=== PATIENT | female | born 1940 | race Caucasian/White ===

== ENCOUNTER 2016-11-08 20:34 | Inpatient (IN) | payer MEDICARE, MEDICAID ==
[~2016-11-08] VITALS: Ht 157.5 cm; Wt 670.9 kg
--- NOTE | 2016-11-08 20:45 | NUR ---
PT BIB PA C/O "URINARY RETENTION" PER REPORT AND BURNING/DYSURIA. PT IS UNABLE TO PROVIDE A HISTORY OR DETAILS OF SYMPTOMS. DENIES N/V/D. NO OTHER COMPLAINTS. CALM, COOPERATIVE. IN ER BED 14.
--- NOTE | 2016-11-08 21:01 | NUR ---
PLACED ON BEDPAN AFTER CLEANING WITH DAIANA SOAP WIPES. IF UNABLE TO URINATE, PT CONSENTS TO CATHETER. PT REPORTS SHE URINATED JUST PRIOR TO ARRIVAL. CONTINENT.
[2016-11-08] MEDS ORDERED: RISP0.2515 PO (21:24)
[2016-11-08] MEDS ORDERED: VENL75CA62 PO (21:24)
[2016-11-08] MEDS ORDERED: ALBU2.5V13 NEB (21:24)
[2016-11-08] MEDS ORDERED: NIFE30TA91 PO (21:24)
[2016-11-08] MEDS ORDERED: FLUT1BLS IH (21:24)
[2016-11-08] MEDS ORDERED: BACL10TA PO (21:24)
[2016-11-08] MEDS ORDERED: ACET1TAB25 PO (21:24)
[2016-11-08] MEDS ORDERED: SENN8.6T6 PO (21:24)
[2016-11-08] MEDS ORDERED: TRAZ-147 PO (21:24)
[2016-11-08] MEDS ORDERED: MONT10TA22 PO (21:24)
[2016-11-08] MEDS ORDERED: TIOT18CA3 IH (21:24)
[2016-11-08] MEDS ORDERED: ESOM40CA52 PO (21:24)
[2016-11-08] MEDS ORDERED: ALBU8.5H2 INH (21:24)
[2016-11-08] MEDS ORDERED: BENA40TA2 PO (21:24)
[2016-11-08] MEDS ORDERED: MAG-5 PO (21:24)
[2016-11-08] MEDS ORDERED: DOCU-25 PO (21:24)
[2016-11-08] MEDS ORDERED: ALBU2.5V38 IH (21:24)
[2016-11-08 21:38] LABS: APPEARANCE,URINE Clear (CLEAR); BILIRUBIN,URINE Negative (NEGATIVE); BLOOD, URINE Trace-intact Ery/uL (NEGATIVE); COLOR,URINE Yellow (YELLOW); KETONES,URINE Negative (NEGATIVE); LEUKOCYTE ESTERASE ,URINE Moderate (NEGATIVE); NITRITE, URINE Negative (NEGATIVE); PH,URINE 5.5 (5.0-8.0); PROTEIN,URINE Negative (NEGATIVE); UGLUCOSE Negative (NEGATIVE); UROBILINOGEN,URINE 0.2 EU/dL (0.2)
[2016-11-08 21:46] LABS: BACTERIA,URINE Few /HPF (None Seen); SQUAMOUS EPITHELIAL CELL,UR Moderate /HPF (None Seen)
[2016-11-08 21:47] LABS: RBC,URINE 0-2 /HPF (0-2); WBC,URINE 21-50 /HPF (0-3)
[2016-11-08 21:47] LABS: BASOPHILS # (AUTO) 0.1 /CMM (0.0-0.2); BASOPHILS % (AUTO) 0.6 % (0.0-2.0); EOSINOPHILS # (AUTO) 0.2 /CMM (0.0-0.7); EOSINOPHILS % (AUTO) 2.5 % (0.0-6.0); HEMATOCRIT 36 % (33-45); HEMOGLOBIN 11.9 g/dL (11.5-14.8); LYMPHOCYTES # (AUTO) 1.2 /CMM (0.8-4.8); LYMPHOCYTES % (AUTO) 12.8 % (20.0-44.0); MEAN CORPUSCULAR HEMOGLOBIN 26 PG (26.0-33.0); MEAN CORPUSCULAR HGB CONC 33 g/dl (31.0-36.0); MEAN CORPUSCULAR VOLUME 79 fL (82-100); MONOCYTES % (AUTO) 10.5 % (2.0-12.0); NEUTROPHILS # (AUTO) 6.7 /CMM (1.8-8.9); NEUTROPHILS % (AUTO) 73.6 % (43.0-81.0); PLATELET COUNT (AUTO) 417 /CMM (150-450); RDW COEFFICIENT OF VARIATION 13.4 (11.5-15.0); RED BLOOD CELL COUNT(AUTO) 4.54 MIL/uL (4.0-5.2); WHITE BLOOD COUNT (AUTO) 9.2 K/uL (4.3-11.0)
[2016-11-08 21:54] LABS: CALCIUM, SERUM 10.2 mg/dL (8.5-10.1); CREATININE 1.6 mg/dL (0.6-1.3); POTASSIUM 5.1 mmol/L (3.5-5.1)
[2016-11-08] MEDS ORDERED: IV NS 0.9% 500 ML BAG IV ONE (22:00)
[2016-11-08] MEDS ORDERED: IV NS 0.9% 1,000 ML BAG IV ONE (22:00)
[2016-11-08] MEDS ORDERED: IV SET PRIMARY 1 EA INFUS.SET MC ONE (22:14)
[2016-11-08] MEDS ORDERED: IV NS 0.9% 1,000 ML ONE (22:14)
[2016-11-08] MEDS ORDERED: IV NS 0.9% 500 ML IV ONE (22:14)
--- NOTE | 2016-11-08 22:15 | NUR ---
REPORT GIVEN TO BALDO BURROWS FOR ADMISSION
[2016-11-08 22:35] VITALS: BP 141/68
--- NOTE | 2016-11-08 23:20 | NUR ---
RN NOTES RECEIVED PX FROM ER VIA [place], AWAKE, ALERT, ORIENTED X 2, COOPERATIVE; PX SAYS SHE IS FORGETFUL SARTHAK WHEN ASKED OF HER MEDICAL HISTORY; CHANGED TO HOSPITAL GOWN; REPOSITIONED FOR COMFORT WITH HOB AT 30 ANGLE; ON OXYGEN FROM ER, O2 SAT UPON ARRIVAL IS 96%, ADJUSTED O2 TO 1 LPM; PX DENIED PAIN, SOB, N/V, DIZZINESS; PHYSICAL ASSESSMENT DONE; RESP EVEN AND UNLABORED, NOT IN DISTRESS; NO SKIN BREAKDOWN; PIV LEFT FA G20 PATENT AND INTACT; ROSADO CATH CONNECTED TO BAG BY GRAVITY; ORIENTED PX TO THE UNIT AND TO TIME.
[2016-11-08] MEDS ORDERED: MAG HYDROX/AL HYDROX/SIMETH 30 ML UDC PO PRN (23:30)
[2016-11-08] MEDS ORDERED: ACETAMINOPHEN W/ CODEINE#3 1 EA TABLET PO PRN (23:30)
[2016-11-08] MEDS ORDERED: SENNOSIDES 8.6 MG TABLET PO PRN (23:30)
[2016-11-08] MEDS ORDERED: IV SET PRIMARY PUMP SET 1 EA INFUS.SET MC ONE (23:35)
[2016-11-08] MEDS ORDERED: SECONDARY IV SET 1 EA INFUS.SET MC ONE (23:35)
[2016-11-09] VITALS: BP 141/68
[2016-11-09] MEDS ORDERED: CEFTRIAXONE 1 G VIAL IV SCH
--- NOTE | 2016-11-09 | NUR ---
RN NOTES ABLE TO SPEAK WITH TANI SANCHEZ, SAYS SHE IS AWARE OF PATIENT CONDITION, NEW ORDERS MADE AND CARRIED OUT. PX ABLE TO TOLERATED SIPS OF WATER AND BITES OF SANDWICH. DUE MEDS GIVEN.
[2016-11-09] MEDS ORDERED: IV D5W 50 ML IV ONE (00:05)
[2016-11-09] MEDS ORDERED: ALBUTEROL FS 2.5 MG/0.5 ML VIAL.NEB ONE (00:07)
[2016-11-09] MEDS ORDERED: IV SET PRIMARY PUMP SET 1 EA INFUS.SET MC ONE (00:13)
[2016-11-09] MEDS: IV NS 0.9% 1,000 ML IV PRN ×2 (00:19→22:21)
--- NOTE | 2016-11-09 01:00 | NUR ---
RN NOTES REMINDED RT OF BREATHING TX, ALBUTEROL.
[2016-11-09] MEDS: ALBUTEROL FS 2.5 MG/0.5 ML VIAL.NEB NEB SCH ×4 (01:30→17:49)
--- NOTE | 2016-11-09 06:10 | NUR ---
RN NOTES PATIENT RESTING COMFORTABLY IN BED, NO SOB, NO DISTRESS, NOT IN APPARENT PAIN; PATIENT IS COOPERATIVE AND CALM. NEEDS ATTENDED. CALL LIGHT WITHIN REACH. PIV REMAINED PATENT AND INTACT; SKIN INTACT; ROSADO INTACT AND CONNECTED TO BAG BY GRAVITY; O2 SAT AT 92-93%. WILL ENDORSE TO NEXT RN.
[2016-11-09] MEDS ORDERED: MAG30ORA PO (07:26)
[2016-11-09 08:00] VITALS: BP 126/53
--- NOTE | 2016-11-09 08:00 | NUR ---
MS RN NOTES PATIENT IN BED RESTING NO SOB OR ACUTE DISTRESS NOTED. PERIPHERAL IV ON LEFT FOREARM INTACT PATENT RUNNING PRESCRIBED FLUIDS. BED IN LOW LOCKED POSITION. CALL LIGHT WITHIN REACH WILL CONTINUE TO MONITOR.
[2016-11-09] MEDS: BENAZEPRIL HCL 20 MG TABLET PO SCH ×2 (09:00→16:44)
[2016-11-09] MEDS ORDERED: TIOTROPIUM BROMIDE 6 CAP/BOX CAP.W.DEV IH SCH (09:00)
[2016-11-09] MEDS ORDERED: VENLAFAXINE 37.5 MG TABLET PO SCH (09:00)
[2016-11-09] MEDS: NIFEdipine XL (30MG) 30 MG TAB PO SCH ×2 (10:06→16:44)
[2016-11-09] MEDS: DOCUSATE SODIUM 100 MG CAPSULE PO SCH ×2 (10:06→16:44)
[2016-11-09] MEDS: BACLOFEN (10 MG) 10 MG TABLET PO SCH ×3 (10:06→16:44)
[2016-11-09] MEDS: IPRATROPIUM NEB FS 0.5 MG/2.5 ML AMPUL.NEB NEB SCH ×2 (10:21→17:49)
--- NOTE | 2016-11-09 13:00 | NUR ---
MS RN NOTES PATIENT SEEN AND EVALUATED BY DR. TOLENTINO ORDERS NOTED AND CARRIED OUT.
[2016-11-09 16:00] VITALS: BP 141/75
[2016-11-09] MEDS ORDERED: DEXTROSE 50%-WATER 50 ML DISP.SYRIN IV PRN (18:00)
--- NOTE | 2016-11-09 18:00 | NUR ---
MS RN NOTES PATIENT NOTED TO HAVE WHEEZING AND SOB WITH O2 SATURATION AT 93% CALLED RT PRESENT AT BEDSIDE, ADMINISTERED BREATHING TREATMENT, DR. TOLENTINO MAD AWARE NEW ORDERS TO ADD PRN BREATHING TREATMENT EVERY 3 HOURS NEEDED.
--- NOTE | 2016-11-09 18:26 | NUR ---
MS RN NOTES PATIENT NOTED WITH NO SOB OR ACUTE DISTRESS AFTER BREATHING TREATMENT. ALL DUE MEDICATIONS GIVEN. IV INTACT PATENT ON RIGHT AC. ALL NEEDS MET WILL ENDORSE TO PM SHIFT AUBREY.
--- NOTE | 2016-11-09 19:30 | NUR ---
MS/RN OPENING NOTES PT AWAKE, SITTING UP IN BED EATING DINNER. WITH O2 AT 2LPM VIA NC, NO SOB OR DISTRESS NOTED BUT WITH NON-PRODUCTIVE COUGH. NO WHEEZING NOTED AT THIS TIME. IV TO RAC PATENT AND INTACT, NO S/S OF INFILTRATION NOTED. PT IS CALM AND COOPERATIVE. DENIES PAIN. BED IN LOW/LOCKED POSITION WITH CALL LIGHT IN REACH. BED RAILS UPX3 WITH ALARM ON. WILL CONTINUE TO MONITOR.
[2016-11-09 20:00] VITALS: BP 141/66
--- NOTE | 2016-11-09 22:02 | NUR ---
MS/RN NOTES PT ASSISTED TO THE RESTROOM. PT VOIDED IN TOILET CLEAR YELLOW URINE
[2016-11-09] MEDS: BLOOD SUGAR DIAGNOSTIC 1 EACH STRIP IN SCH (22:22)
[2016-11-09] MEDS: risperiDONE 0.25 MG TABLET PO SCH (22:22)
[2016-11-09] MEDS: MONTELUKAST SODIUM (10MG) 10 MG TABLET PO SCH (22:22)
[2016-11-09] MEDS: ATORVASTATIN 10 MG TABLET PO SCH (22:22)
[2016-11-09] MEDS: TRAZODONE 50 MG TABLET PO SCH (22:22)
[2016-11-09] MEDS: INSULIN ASPART NOVOLOG 100 UNIT/ML CARTRIDGE SQ PRN (22:30)
[2016-11-09] MEDS ORDERED: SECONDARY IV SET 1 EA INFUS.SET MC ONE (23:28)
[2016-11-09] MEDS: CEFTRIAXONE 1 G in IV D5W 50 ML IV SCH (23:32)
--- NOTE | 2016-11-10 01:20 | NUR ---
MS/RN NOTES RECHECKED BLOOD [id number]. NO ACTION NEEDED. SNACKS PROVIDED AT BEDSIDE AND ENCOURAGE PT INTAKE. WILL CONTINUE TO MONITOR FOR POSSIBLE S/S OF HYPOGLYCEMIA
--- NOTE | 2016-11-10 05:45 | NUR ---
MS/RN NOTES CALLED RT TWICE TO REQUEST FOR PRN BREATHING TX. NO ANSWER. WILL TRY AGAIN SHORTLY
--- NOTE | 2016-11-10 06:18 | NUR ---
MS/RN NOTES SPOKE TO RT YESY AT 0600 AND ASKED IF HE COULD COME DOWN FOR PRN BREATHING TX. HE ASKED IF SHE WAS WHEEZING AND I SAID IT HAS CALMED DOWN BUT PT FEELS LIKE SHE COULD USE A BREATHING TX. RT YESY SAID HE WOULD COME DOWN AND ASSESS PT. F/U WITH RT AT 0618 AND ASKED IF HE COULD GIVE THE BREATHING TX BEFORE CHANGE OF SHIFT. HE SAID YES.
[2016-11-10] MEDS: ALBUTEROL FS 2.5 MG/3 ML VIAL.NEB NEB PRN ×3 (06:23→16:46)
[2016-11-10] MEDS: IPRATROPIUM NEB FS 0.5 MG/2.5 ML AMPUL.NEB NEB PRN ×3 (06:24→16:46)
[2016-11-10 06:29] LABS: BASOPHILS % (AUTO) 0.3 % (0.0-2.0); EOSINOPHILS # (AUTO) 0.2 /CMM (0.0-0.7); EOSINOPHILS % (AUTO) 1.7 % (0.0-6.0); HEMATOCRIT 33 % (33-45); HEMOGLOBIN 10.8 g/dL (11.5-14.8); LYMPHOCYTES # (AUTO) 1.9 /CMM (0.8-4.8); LYMPHOCYTES % (AUTO) 17.1 % (20.0-44.0); MEAN CORPUSCULAR HEMOGLOBIN 28 PG (26.0-33.0); MEAN CORPUSCULAR HGB CONC 33 g/dl (31.0-36.0); MEAN CORPUSCULAR VOLUME 84 fL (82-100); MONOCYTES # (AUTO) 1.2 /CMM (0.1-1.30); NEUTROPHILS # (AUTO) 7.9 /CMM (1.8-8.9); NEUTROPHILS % (AUTO) 69.9 % (43.0-81.0); PLATELET COUNT (AUTO) 405 /CMM (150-450); RDW COEFFICIENT OF VARIATION 14.9 (11.5-15.0); RED BLOOD CELL COUNT(AUTO) 3.89 MIL/uL (4.0-5.2); WHITE BLOOD COUNT (AUTO) 11.2 K/uL (4.3-11.0)
[2016-11-10] MEDS: BLOOD SUGAR DIAGNOSTIC 1 EACH STRIP IN SCH ×4 (06:46→21:39)
[2016-11-10 07:06] LABS: CALCIUM, SERUM 10.2 mg/dL (8.5-10.1); CREATININE 1.3 mg/dL (0.6-1.3); POTASSIUM 5.1 mmol/L (3.5-5.1)
--- NOTE | 2016-11-10 07:14 | NUR ---
MS/RN CLOSING NOTES PT ASLEEP, EASILY AROUSABLE TO NAME. A/OX1-2, FORGETFUL. ON 2LPM O2 VIA NC, BREATHING EVEN AND UNLABORED. NO SOB OR DISTRESS NOTED. RECEIVED PRN BREATHING TX AROUND 0620. NO WHEEZING NOTED. IV TO RAC PATENT AND INTACT, RUNNING IVF ORDERED. PT VOIDED X2 DURING SHIFT. DENIES DIFFICULT OR PAINFUL URINATION. BLOOD SUGAR AROUND 0645 WAS 130, NO INSULIN COVERAGE PER SLIDING SCALE. BED REMAINS IN LOW/LOCKED POSITION WITH CALL LIGHT IN REACH. BED ALARM ON AND BED RAILS UP FOR SAFETY. ENDORSED TO AM SHIFT AUBREY.
[2016-11-10 08:00] VITALS: BP 119/60
--- NOTE | 2016-11-10 08:00 | NUR ---
MS RN NOTES PATIENT IN BED RESTING NO SOB OR ACUTE DISTRESS NOTED. IV INTACT ON RIGHT AC RUNNING PRESCRIBED FLUIDS. BED IN LOW LOCKED POSITION. CALL LIGHT WITHIN REACH WILL CONTINUE TO MONITOR.
[2016-11-10] MEDS: methylPREDNISolone SOD SUCC 40 MG/ML VIAL IV SCH ×3 (08:26→17:14)
[2016-11-10] MEDS: DOCUSATE SODIUM 100 MG CAPSULE PO SCH ×2 (08:27→17:16)
[2016-11-10] MEDS: NIFEdipine XL (30MG) 30 MG TAB PO SCH ×2 (08:27→17:18)
[2016-11-10] MEDS: ASPIRIN EC 81 MG TABLET.DR PO SCH (08:27)
[2016-11-10] MEDS: VENLAFAXINE XR 37.5 MG CAP.SR.24H PO SCH (08:27)
[2016-11-10] MEDS: BACLOFEN (10 MG) 10 MG TABLET PO SCH ×3 (08:27→17:16)
[2016-11-10] MEDS: BENAZEPRIL HCL 20 MG TABLET PO SCH ×2 (08:28→17:17)
--- NOTE | 2016-11-10 12:00 | NUR ---
MS RN NOTES PATIENT SEEN AND EVALUATED BY DR. TOLENTINO ORDERS NOTED AND CARRIED OUT.
[2016-11-10] MEDS: INSULIN ASPART NOVOLOG 100 UNIT/ML CARTRIDGE SQ PRN ×3 (12:25→22:11)
[2016-11-10] MEDS ORDERED: HALOPERIDOL LACTATE INJ 5 MG/ML VIAL IM PRN (14:00)
[2016-11-10] MEDS ORDERED: HALOPERIDOL 1 MG TABLET PO PRN (14:00)
[2016-11-10 16:00] VITALS: BP 117/61
--- NOTE | 2016-11-10 18:12 | NUR ---
MS RN NOTES PATIENT IN BED RESTING NO SOB OR ACUTE DISTRESS NOTED. ALL DUE MEDICATIONS GIVEN ALL NEEDS MET. IV ON RIGHT AC INTACT PATENT. WILL ENDORSE TO PM SHIFT AUBREY.
[2016-11-10 20:00] VITALS: BP 131/50
[2016-11-10] MEDS: MONTELUKAST SODIUM (10MG) 10 MG TABLET PO SCH (21:39)
[2016-11-10] MEDS: ATORVASTATIN 10 MG TABLET PO SCH (21:39)
[2016-11-10] MEDS: risperiDONE 0.25 MG TABLET PO SCH (21:39)
[2016-11-10] MEDS: TRAZODONE 50 MG TABLET PO SCH (21:40)
--- NOTE | 2016-11-10 22:15 | NUR ---
MS/RN NOTES BLOOD SUGAR 164, 3 UNITS OF INSULIN ADMINISTERED PER SLIDING SCALE. WILL MONITOR FOR S/S OF HYPOGLYCEMIA Addendum: 11/10/16 at 2234 by LIANE HENDERSON RN MARKOS COBOS TRIED TO CO-SIGN INSULIN BUT ERROR MESSAGE APPEARED SAYING THAT SHE DOES NOT HAVE PROPER ACCESS. MARKOS CONNER FROM 3W TRIED WELL AND GOT THE SAME ERROR MESSAGE. MARKOS MATT WAS NEARBY AND WAS ABLE TO COSIGN FOR ME.
[2016-11-10] MEDS: CEFTRIAXONE 1 G in IV D5W 50 ML IV SCH (23:53)
[2016-11-11] MEDS: BLOOD SUGAR DIAGNOSTIC 1 EACH STRIP IN SCH ×4 (06:39→21:27)
[2016-11-11] MEDS: INSULIN ASPART NOVOLOG 100 UNIT/ML CARTRIDGE SQ PRN (06:44)
--- NOTE | 2016-11-11 06:44 | NUR ---
MS/RN NOTES BLOOD SUGAR= 130, NO INSULIN PER SLIDING SCALE.
[2016-11-11] MEDS: ALBUTEROL FS 2.5 MG/3 ML VIAL.NEB NEB PRN ×3 (07:02→19:58)
[2016-11-11] MEDS: IPRATROPIUM NEB FS 0.5 MG/2.5 ML AMPUL.NEB NEB PRN ×3 (07:02→19:58)
--- NOTE | 2016-11-11 07:15 | NUR ---
MS/RN CLOSING NOTES PT AWAKE, A/OX1-2, FORGETFUL. CURRENTLY RECEIVING BREATHING TX BECAUSE SHE WAS FEELING SHORT OF BREATH AND STARTED WHEEZING. O2 SAT >90%. DENIES PAIN. IV TO RAC PATENT AND INTACT. IVF ON HOLD DUE TO PT BENDING HER ARM THROUGHOUT THE NIGHT. PT VOIDED X2, DENIES DIFFICULTY URINATING/ BURNING SENSATION. BED IN LOW/LOCKED POSITION WITH CALL LIGHT IN REACH. BED RAILS UPX3 WITH ALARM ON. ENDORSED TO AM SHIFT AUBREY.
--- NOTE | 2016-11-11 07:45 | NUR ---
MS/RN OPENING NOTES RECEIVED PATIENT RESTING IN BED COMFORTABLY, A/OX1-2. RESPIRATIONS EVEN AND UNLABORED, ON 02 2L VIA NC, SAT OF 95%NO ACUTE DISTRESS OR DISCOMFORT NOTED, DENIES PAIN AT THIS TIME. SAFETY MEASURES RENDERED, CALL LIGHT PLACED WITHIN REACH. BED LOCKED IN LOWEST, BED RAILS UPX3 WITH ALARM ON. WILL CONTINUE TO MONITOR.
[2016-11-11 08:00] VITALS: BP 145/64
[2016-11-11 08:21] VITALS: BP 145/64
[2016-11-11] MEDS: methylPREDNISolone SOD SUCC 40 MG/ML VIAL IV SCH ×3 (08:52→16:59)
[2016-11-11] MEDS: NIFEdipine XL (30MG) 30 MG TAB PO SCH ×2 (08:52→17:00)
[2016-11-11] MEDS: DOCUSATE SODIUM 100 MG CAPSULE PO SCH ×2 (08:53→17:00)
[2016-11-11] MEDS: BENAZEPRIL HCL 20 MG TABLET PO SCH ×2 (08:53→16:59)
[2016-11-11] MEDS: BACLOFEN (10 MG) 10 MG TABLET PO SCH ×3 (08:53→17:06)
[2016-11-11] MEDS: ASPIRIN EC 81 MG TABLET.DR PO SCH (08:53)
[2016-11-11] MEDS: VENLAFAXINE XR 37.5 MG CAP.SR.24H PO SCH (08:53)
--- NOTE | 2016-11-11 11:49 | NUR ---
MS/RN NOTES BLOOD SUGAR FOR 1200 70MG/DL NO INSULIN PER SLIDING SCALE. ORANGE JUICE GIVEN TO PATIENT. WILL MONITOR FOR S/S OF HYPO/HYPERGLYCEMIA.
[2016-11-11 16:00] VITALS: BP 183/66
--- NOTE | 2016-11-11 17:36 | NUR ---
MS/RN NOTES PATIENTS BLOOD SUGAR 142MG/DL, REFUSES INSULIN, STATING TO NOT BE DIABETIC AND DOES NOT WANT TO TAKE ANY ANTIDIABETICS AT THIS TIME.
--- NOTE | 2016-11-11 18:33 | NUR ---
MS/RN NOTES PATIENT RESTING IN BED COMFORTABLY, NO SIGNIFICANT CHANGES NOTED, STABLE AT THIS TIME. NO S/S OF DISTRESS/DISCOMFORT NOTED. RESPIRATIONS EVEN AND UNLOBED, ON CONTINUOUS 02 VIA NC, BREATHING TX PRN. NO COMPLAINTS OF PAIN AT THIS TIME. PATIENT KEPT CLEAN AND DRY, ALL DUE MEDS GIVEN, ALL NEEDS MET AND ATTENDED. WILL ENDORSE CARE TO SWEET PICKLED FRUIT MAKER FOR AUBREY.
[2016-11-11 20:00] VITALS: BP_SYST 158; BP_SYST 178; BP_DIAS 60; BP_DIAS 69
--- NOTE | 2016-11-11 20:00 | NUR ---
RN NOTES RECEIVED PX AWAKE, AGITATED, SEEN GETTING UP IN BED, PULLING PIV OUT, ORIENTED TO NAME AND PLACE, SEEN TALKING TO HERSELF, SAID "IM LOOKING FOR MY DAUGHTER TED"; NOTED WHEEZING WITH RR AT 26 O2 SAT AT 93%, CALLED LEAD RT TO NOTIFY ASSIGNED RT FOR BREATHING TREATMENT; HALDOL GIVEN FOR AGITATION; NEW PIV PLACED ON RIGHT FOREARM G20 PATENT AND INTACT; PX ABLE TO MOVE BY SELF IN BED; DENIED PAIN, N/V; DISCUSSED PLAN OF CARE; CLOSE TO NURSES STATION TO WATCH OUT FOR FALL, BED ALARM ON.
[2016-11-11 20:40] VITALS: BP 156/60
--- NOTE | 2016-11-11 20:40 | NUR ---
RN NOTES PX STOPPED WHEEZING, O2 SAT AT 94, LATEST VITALS: BP-158/60, HR- 96, RR-21; PX MORE COOPERATIVE BUT EASILY FORGETFUL OF WHY SHE IS IN THE HOSPITAL. CALLED DR. TOLENTINO'S OFFICE, LEFT A MESSAGE OVER TANI SANCHEZ'S VOICEMAILBOX STATING PATIENT'S EARLIER STATUS OF WHEEZING, AGITATION, BP OF 178/69, HR 114 AND OF LATEST VITAL SIGNS.
[2016-11-11] MEDS: TRAZODONE 50 MG TABLET PO SCH (21:26)
[2016-11-11] MEDS: MONTELUKAST SODIUM (10MG) 10 MG TABLET PO SCH (21:26)
[2016-11-11] MEDS: ATORVASTATIN 10 MG TABLET PO SCH (21:26)
[2016-11-11] MEDS: risperiDONE 0.25 MG TABLET PO SCH (21:26)
--- NOTE | 2016-11-11 22:00 | NUR ---
RN NOTES PX NOW CALM, ORIENTED X 2, DUE MEDS GIVEN; BLOOD SUGAR CHECK DONE BUT PX REFUSED INSULIN SQ TREATMENT, EDUCATED ON ITS NEED.
[2016-11-11] MEDS: CEFTRIAXONE 1 G in IV D5W 50 ML IV SCH (23:16)
--- NOTE | 2016-11-12 02:12 | NUR ---
RN NOTES PX SLEEPING, RESP EVEN AND UNLABORED; NO S/SX OF DISTRESS. CONTINUED TO MONITOR. CALL LIGHT WITHIN REACH.
[2016-11-12 03:43] VITALS: BP 133/70
[2016-11-12] MEDS: IPRATROPIUM NEB FS 0.5 MG/2.5 ML AMPUL.NEB NEB PRN ×3 (04:00→11:25)
[2016-11-12] MEDS: ALBUTEROL FS 2.5 MG/3 ML VIAL.NEB NEB PRN ×3 (04:00→11:25)
--- NOTE | 2016-11-12 04:00 | NUR ---
RN NOTES HAD ANOTHER EPISODE OF WHEEZING, O2 SAT 95%, CONTINUED ON O2 AT 2 LPM, BREATHING TREATMENT WAS GIVEN BY RT.
[2016-11-12 06:52] LABS: CALCIUM, SERUM 10.5 mg/dL (8.5-10.1); CREATININE 1.1 mg/dL (0.6-1.3); POTASSIUM 5.5 mmol/L (3.5-5.1)
--- NOTE | 2016-11-12 07:15 | NUR ---
MS RN OPENING RECEIVED PATIENT SLEEPING AWAKE TO NAME. PATIENT DENIES SOB DIFFICULTY BREATHING AND HAS A DRY COUGH NO PRODUCTION. PATIENT IS ON NC 2LPM WILL CHECK ROOM AIR. PATIENT STATES NO NEEDS AT THIS TIME AND APPEARS STABLE. CALL LIGHT IN REACH, BED LOWERED AND LOCKED, RAILS UPX3 FOR SAFETY AND WILL ROUND Q2H OR LESS PER NEEDS
[2016-11-12 07:18] LABS: HEMATOCRIT 30 % (33-45); HEMOGLOBIN 9.8 g/dL (11.5-14.8); LYMPHOCYTES # (AUTO) 0.7 /CMM (0.8-4.8); MEAN CORPUSCULAR HEMOGLOBIN 26 PG (26.0-33.0); MEAN CORPUSCULAR HGB CONC 32 g/dl (31.0-36.0); MEAN CORPUSCULAR VOLUME 79 fL (82-100); MONOCYTES % (AUTO) 6.8 % (2.0-12.0); NEUTROPHILS # (AUTO) 12.8 /CMM (1.8-8.9); NEUTROPHILS % (AUTO) 88.2 % (43.0-81.0); PLATELET COUNT (AUTO) 354 /CMM (150-450); RDW COEFFICIENT OF VARIATION 14.8 (11.5-15.0); RED BLOOD CELL COUNT(AUTO) 3.82 MIL/uL (4.0-5.2); WHITE BLOOD COUNT (AUTO) 14.5 K/uL (4.3-11.0)
[2016-11-12] MEDS: BLOOD SUGAR DIAGNOSTIC 1 EACH STRIP IN SCH ×2 (07:30→12:11)
[2016-11-12 08:00] VITALS: BP 123/55
[2016-11-12] MEDS: methylPREDNISolone SOD SUCC 40 MG/ML VIAL IV SCH ×2 (08:23→12:12)
[2016-11-12] MEDS: BACLOFEN (10 MG) 10 MG TABLET PO SCH ×2 (08:24→12:13)
[2016-11-12] MEDS: DOCUSATE SODIUM 100 MG CAPSULE PO SCH (08:24)
[2016-11-12] MEDS: ASPIRIN EC 81 MG TABLET.DR PO SCH (08:24)
--- NOTE | 2016-11-12 08:30 | NUR ---
MS RN NOTES "NON ADMIN" FOR 629 ACCUCHECK DUE TO NIGHT RN ALREADY COMPLETING THIS; IT WAS JUST NOT SCANNED
--- NOTE | 2016-11-12 08:57 | NUR ---
MS RN NOTES MESSAGE LEFT TO DR TOLENTINO TO NOTIFY OF LABS; K, WBC, AND BUN INCREASE.
[2016-11-12] MEDS: VENLAFAXINE XR 37.5 MG CAP.SR.24H PO SCH (09:27)
[2016-11-12 09:28] VITALS: BP 128/60
[2016-11-12] MEDS: NIFEdipine XL (30MG) 30 MG TAB PO SCH (09:28)
--- NOTE | 2016-11-12 10:00 | NUR ---
MS RN NOTES MED RECON COMPLETED PER MD ORDERS. PRINTED. PER MD CALL HIS OFFICE TO NOTIFY TO WRITE RX FOR PREDNISONE 40MG DAILY FOR [address]. [address] JEAN PER DAUGHTER REQUEST AND NOTIFIED OF MD PLAN TO DC. PER DAUGHTER CALL HER ONCE PATIENT IS READY FOR INTENSIVE CARE UNIT NURSE
--- NOTE | 2016-11-12 10:03 | NUR ---
MS RN NOTES PER DR TOLENTINO CHANGE LOTENSIN ORDER TO 20MG BID PO AND ORDER FOR DISCHARGE PREDNISONE 49MG PO DAILY FOR 3 DAYS. MD AWARE OF THE LABS; NO NEW ORDERS
--- NOTE | 2016-11-12 11:21 | NUR ---
MS RN NOTES CALLED RESPIRATORY FOR PRN BREATHING TREATMENT FOR PATIENT
--- NOTE | 2016-11-12 14:34 | NUR ---
MS PREPARED FOODS SERVICE TEAM MEMBER PT STABLE NO COMPLICATIONS NO CHANGES. PATIENT AND DAUGHTER EDUCATED ON DISCHARGE MATERIAL AND STATED UNDERSTANDING. MEDICATION RECON AND MD ORDERS GIVEN WITH MATERIAL FROM [facility]. PATIENT DAUGHTER SIGNED DC MATERIAL PER PATIENT REQUEST AND GIVEN COPIES. IV REMOVED PRESSURE AND DRESSING APPLIED NO BLEEDING. PATIENT ASSISTED TO CAR IN WHEELCHAIR BY PAPITO CERVANTES. PATIENT LEFT IN STABLE CONDITION NO COMPLICATIONS
[2016-11-12] MEDS ORDERED: BENAZEPRIL HCL 20 MG TABLET PO SCH (17:00)
[2016-11-14] MEDS ORDERED: BENAZEPRIL HCL 20 MG TABLET PO SCH (09:00)
== END 2016-11-12 14:45 | DRG 190 ==
LOC: ER 20:38 → MEDSG2 22:08
PROVIDERS: ADMIT Internal Medicine; ATTEND Internal Medicine
DX: J44.0 Chronic obstructive pulmonary disease with (acute) lower respiratory infection (principal); G93.40 Encephalopathy, unspecified; N17.0 Acute kidney failure with tubular necrosis; E87.1 Hypo-osmolality and hyponatremia; J20.9 Acute bronchitis, unspecified; J44.1 Chronic obstructive pulmonary disease with (acute) exacerbation; I25.10 Atherosclerotic heart disease of native coronary artery without angina pectoris; G30.9 Alzheimer's disease, unspecified; F02.80 Dementia in other diseases classified elsewhere, unspecified severity, without behavioral disturbance, psychotic disturbance, mood disturbance, and anxiety; D63.8 Anemia in other chronic diseases classified elsewhere; F17.200 Nicotine dependence, unspecified, uncomplicated; K21.9 Gastro-esophageal reflux disease without esophagitis; E87.5 Hyperkalemia; R82.71 Bacteriuria; T38.0X5A Adverse effect of glucocorticoids and synthetic analogues, initial encounter; Y92.89 Other specified places as the place of occurrence of the external cause; Z79.899 Other long term (current) drug therapy; I12.9 Hypertensive chronic kidney disease with stage 1 through stage 4 chronic kidney disease, or unspecified chronic kidney disease; N18.3 Chronic kidney disease, stage 3 (moderate)
CPT/HCPCS: 36415; 80048-TC; 81000-TC; 82962-TC; 85025-TC; 87081-TC; 87086-TC; 94799-TC; 97001-TC; A4606; J0696; J1815; J2920; J7030; J7040; J7060; Z7610

== ENCOUNTER 2017-06-25 17:26 | Emergency (ER) | payer MEDICARE, MEDICAID ==
[~2017-06-25] VITALS: Ht 157.5 cm; Wt 56.7 kg
[~2017-06-25 17:26] MED LIST: ACET1TAB25 PO; ALBU2.5V13 NEB; ALBU2.5V38 IH; ALBU8.5H2 INH; BACL10TA PO; BENA40TA2 PO; DOCU-25 PO; ESOM40CA52 PO; FLUT1BLS IH; MAG30ORA PO; MONT10TA22 PO; NIFE30TA91 PO; RISP0.2515 PO; SENN8.6T6 PO; TIOT18CA3 IH; TRAZ-147 PO; VENL75CA62 PO
--- NOTE | 2017-06-25 17:40 | NUR ---
AC ALEGER FROM [facility]. 2.5LNC 97% O2 SATS.
[2017-06-25] MEDS ORDERED: ALBUTEROL FS 2.5 MG/3 ML VIAL.NEB NEB ONE (18:00)
[2017-06-25] MEDS ORDERED: predniSONE 20 MG TABLET PO ONE (18:00)
[2017-06-25] MEDS ORDERED: IPRATROPIUM NEB FS 0.5 MG/2.5 ML AMPUL.NEB NEB ONE (18:00)
[2017-06-25] MEDS ORDERED: predniSONE 20 MG TABLET ONE (18:07)
[2017-06-25] MEDS ORDERED: ALBUTEROL FS 2.5 MG/3 ML VIAL.NEB ONE (18:16)
[2017-06-25] MEDS ORDERED: IPRATROPIUM NEB FS 0.5 MG/2.5 ML AMPUL.NEB ONE (18:16)
--- NOTE | 2017-06-25 19:27 | NUR ---
patient reports feeling better at this time, nad noted. vss.
--- NOTE | 2017-06-25 20:00 | NUR ---
PATIENT REFUSED FOR LAB WORK AND SAID, "I WANNA GO HOME." DR MENDOZA NOTIFIED.
--- NOTE | 2017-06-25 20:59 | NUR ---
[facility] HERE FOR TRANSFER
--- NOTE | 2017-06-25 21:15 | NUR ---
called Summer at [facility], notified of patient transfer.
[2017-06-25 21:29] VITALS: BP 147/70
--- NOTE | 2017-06-25 21:29 | NUR ---
Endorsed care to [facility] staff, patient picked up by them. Nad noted. vss. No further complaints.
== END 2017-06-25 21:30 ==
LOC: ER 17:26
DX: J44.1 Chronic obstructive pulmonary disease with (acute) exacerbation (principal); I10 Essential (primary) hypertension; K21.9 Gastro-esophageal reflux disease without esophagitis; F17.200 Nicotine dependence, unspecified, uncomplicated
CPT/HCPCS: 71010; 93005; 94640; 99284; A4606; J7512; Z7610